=== PATIENT | female | born 2000 | race African-American/Black ===

== ENCOUNTER 2020-04-05 08:08 | Emergency (ER) | payer OTHER, SELFPAY ==
--- NOTE | ~2020-04-05 | XR_ITS ---
EXAMINATION: XR chest 2V DATE: 04/05/2020 09:04 INDICATION: Shortness of breath, chemical inhalation, coughing TECHNIQUE: PA and lateral views of the chest are obtained. COMPARISON: None available FINDINGS: There are minimal opacities of the mid and lower lung zones. There is no pleural effusion o r pneumothorax. The cardiomediastinal silhouette is normal. The visualized bones and soft tissues are unremarkable. IMPRESSION: 1. Minimal opacities of the mid and lower lung zones which could reflect atelectasis or pneumonia or possibly be related to history of chemical in relation. Reviewed, dictated and finalized at location B. IMPRESSION: 1. Minimal opacities of the mid and lower lung zones which could reflect atelec tasis or pneumonia or possibly be related to history of chemical in relation.
--- NOTE | ~2020-04-05 | CT_ITS ---
EXAMINATION: CT brain wo con INDICATION: Headache COMPARISON: None TECHNIQUE: Standard unenhanced head CT. The dose-length product (DLP) was 529.67 mGy-cm. The mA was a djusted according to patient size. Iterative reconstruction technique was employed. FINDINGS: There is no intracranial hemorrhage, acute infarction, or abnormal mass lesion. The ventric les are normal. There is no abnormal mass effect or midline shift. The frias-white matter differentiat ion is normal. The basal cisterns are patent. The orbits are normal. There is mild mucosal thickening of the paranasal sinuses. IMPRESSION: 1. No acute intracranial abnormality. Reviewed, dictated and finalized at location B.
[2020-04-05 08:12] VITALS: BP 130/95; PULSE 92; RESP 18; TEMP 36.8; O2SAT 100
[2020-04-05 08:30] VITALS: O2SAT 100
[2020-04-05] MEDS: KETOROLAC 30 MG/ML VIAL (*BKC) IV PUSH (08:53)
--- NOTE | 2020-04-05 08:56 | ED.HA ---
HPI - Headache General Chief Complaint: Headache Stated Complaint: Headache, Chemical Exposure Time Seen by Provider: 04/05/20 08:29 History of Present Illness HPI Narrative: Patient is a 19-year-old female who presents the ER with a headache. 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 She left the room she was then and began to feel nauseated and then vomited. After vomiting she had sudden onset frontal headache that is throbbing and nonradiating. No numbness or tingling/change in vision or hearing. No alleviating factors that she is found. No longer has any dyspnea. Patient reports she is frequently coughing but that has not abated as well. Related Data Allergies Allergy/AdvReac Type Severity Reaction Status Date / Time No Known Allergies Allergy Verified 04/05/20 08:15 Review of Systems Review of Systems: All systems reviewed & are unremarkable except as noted in HPI and below Constitutional: Constitutional: Denies chills, Denies fever(s) and Denies weakness Eyes: Eyes: Denies change in vision and Denies photophobia ENT: Denies nasal congestion and Denies sore throat Respiratory: Respiratory: Reports cough, Reports dyspnea and Denies wheezing Gastrointestinal: Gastrointestinal: Reports nausea and Reports vomiting Neurologic: Denies dizziness, Reports headache(s), Denies focal weakness and Denies numbness PMFSH Past Medical History Medical History (Updated 04/05/20 @ 11:07 by Barrett Silverio MD) No pertinent past medical history Surgical History Surgical History (Updated 04/05/20 @ 11:05 by Barrett Silverio MD) No pertinent past surgical history Social History Social History (Updated 04/05/20 @ 11:05 by Barrett Silverio MD) Smoking status: Never smoker Exam Narrative: Exam Narrative: GENERAL: Well-appearing, morbidly obese, and in no acute distress. HEAD: Normocephalic, atraumatic. EYES: PERRLA and EOMI. ENT: Mucous membranes moist. CHEST: Clear to auscultation. No respiratory distress. HEART: Regular rate and rhythm. Normal peripheral pulses. EXTREMITIES: Normal range of motion. No edema. NEURO: No focal deficits. Alert and oriented x3. PSYCH: Normal mood and affect. Course Course Emergency Course: No shortness of breath or coughing. Remains 100% on room air. Will give Augmentin in case she has chemical pneumonitis on x-ray. Vital Signs Vital signs: Vital Signs Temperature 98.3 F 04/05/20 08:12 Pulse Rate 92 04/05/20 08:12 Respiratory Rate 18 04/05/20 08:12 Blood Pressure 130/95 H 04/05/20 08:12 Pulse Oximetry 100 04/05/20 08:12 Temperature 98.3 F 04/05/20 08:12 Pulse Rate 72 04/05/20 09:59 Respiratory Rate 14 04/05/20 09:59 Blood Pressure 130/74 04/05/20 09:59 Pulse Oximetry 99 04/05/20 09:59 MDM - Headache Imaging Data Radiologist's impression: ITS Impressions Head CT 04/05/20 09:04 IMPRESSION: 1. No acute intracranial abnormality. Chest X-Ray 04/05/20 09:06 IMPRESSION: 1. Minimal opacities of the mid and lower lung zones which could reflect atelectasis or pneumonia or possibly be related to history of chemical in relation. Discharge Plan Discharge Clinical Impression: Headache, Chemical pneumonitis Patient Disposition: Home, Self-Care Condition: Stable Instructions: Pneumonitis (ED), Acute Headache (ED) Additional Instructions: Return the ER if you have worsening shortness of breath, you cannot keep down food or water, you have chest pain or shortness of breath, you have additional concerns. Prescriptions: New amoxicillin-pot clavulanate [Augmentin] 875-125 mg tablet 1 tablet PO Q12H Qty: 14 RF: 0 Follow-up/Referrals: Regis Child MD [Physician] - 1 Week PHYSICIAN,PAVING SUPERVISOR [Primary Care Provider] - Stand Alone Forms: Work/School Release IP
[2020-04-05 09:59] VITALS: BP 130/74; PULSE 72; RESP 14; O2SAT 99
[2020-04-05 11:21] VITALS: BP 134/68; PULSE 70; RESP 14; O2SAT 99
== END 2020-04-05 11:22 | disposition home or self-care (01) ==
PROVIDERS: Emergency Provider Emergency Medicine
DX: T54.91XA Toxic effect of unspecified corrosive substance, accidental (unintentional), initial encounter (principal); J68.0 Bronchitis and pneumonitis due to chemicals, gases, fumes and vapors; R51 Headache
CPT/HCPCS: 70450; 71046; 96374; 99284; J1885